=== PATIENT | male | born 1960 | race Caucasian/White ===

== ENCOUNTER 2017-07-29 15:12 | Emergency (ER) | payer SELFPAY ==
[~2017-07-29] VITALS: Ht 175.3 cm; Wt 85.0 kg
[2017-07-29 16:57] LABS: HEMATOCRIT 46.1 % (39.0-50.0); HEMOGLOBIN 15.5 g/dl (14.0-18.0); IMMATURE GRANULOCYTES 0.5 % (0.0-1.0); MEAN CORPUSCULAR HGB 30.9 pG CALC (26.0-32.0); MEAN CORPUSCULAR HGB CONC 33.6 g/L CALC (32.0-36.0); NEUT# 8.86 thou/uL (1.82-7.42); RED BLOOD COUNT 5.01 mill/uL (4.70-6.10); RED CELL DISTRI WIDTH 12.2 % (11.5-15.5)
[2017-07-29 17:16] LABS: ALBUMIN 4.9 g/dL (3.2-5.0); ALKALINE PHOSPHATASE 100 u/l (38-126); AMYLASE 95 u/l (30-110); ANION GAP 20 (6-22 (CALC)); BILIRUBIN, TOTAL 0.7 mg/dL (0.0-1.4); BUN 30 mg/dL (9-20); BUN/CREATININE RATIO 24 (12-20 (CALC)); CALCIUM 10.8 mg/dL (8.4-10.2); CARBON DIOXIDE 20 mmol/l (22-30); CHLORIDE 106 mmol/l (95-108); CREATININE 1.2 mg/dL (0.7-1.3); GFR > 60 ML/MIN (>=60 (CALC)); GFR FOR AFR.AMER. > 60 ML/MIN (>=60 (CALC)); GLUCOSE 282 mg/dL (75-110); LIPASE 387 u/l (23-300); POTASSIUM 4.5 mmol/l (3.5-5.1); SGOT/AST 24 u/l (17-59); SGPT/ALT 26 u/l (21-72); SODIUM 141 mmol/l (137-146); TOTAL PROTEIN 7.5 g/dL (6.3-8.2)
[2017-07-29 17:28] LABS: MYOGLOBIN 195 ng/mL (0 - 121)
[2017-07-29] MEDS ORDERED: METFORMIN500 MG PO (18:43)
[2017-07-29] MEDS ORDERED: TRADJENTA5 MG PO (18:44)
[2017-07-29 18:53] LABS: URINE BILIRUBIN - DIPSTICK NEGATIVE (NEGATIVE); URINE BLOOD DIPSTICK LARGE (NEGATIVE); URINE COLOR YELLOW; URINE GLUCOSE - DIPSTICK >=1000 mg/dL (NEGATIVE); URINE KETONE 15 mg/dL (NEGATIVE); URINE LEUK ESTERASE NEGATIVE (NEGATIVE); URINE NITRITE - DIPSTICK NEGATIVE (Negative); URINE PH 5.5 (4.5-8.0); URINE PROTEIN - DIPSTICK NEGATIVE (NEG-TRACE); URINE SPECIFIC GRAVITY 1.015; URINE UROBILINOGEN - DIPSTICK 0.2 E.U./dL (0.2)
[2017-07-29 18:56] LABS: URINE CLARITY CLEAR
[2017-07-29] MEDS ORDERED: NORCO1 TA1 PO (19:02)
[2017-07-29 19:04] LABS: URINE RBC TNTC RBC/hpf (0-5); URINE SQUAMOUS EPITHELIAL CELL FEW EPI/hpf (0-FEW)
[2017-07-29 19:13] VITALS: BP 152/73
== END 2017-07-29 19:24 | disposition home or self-care (01) | DRG 392 ==
LOC: ED 15:12
PROVIDERS: Emergency Medicine
DX: R10.30 Lower abdominal pain, unspecified (principal); N20.2 Calculus of kidney with calculus of ureter
CPT/HCPCS: Q9967